=== PATIENT | female | born 1985 | race Caucasian/White ===

== ENCOUNTER 2017-12-16 08:42 | Emergency (ER) | payer OTHER ==
[~2017-12-16] VITALS: Ht 160 cm; Wt 100.0 kg
[~2017-12-16 08:42] MED LIST: AUGMENTIN400 MG OR; CIPRO XR500 MG PO; DILAUDID2 MG PO; LORTAB 10 PO; LORTAB 5 OR; LORTAB5 PO; MIRALAX3350 N1 PO; NAPROSYN500 MG PO; NO; NO HOME MEDS; ONDANSETRON4 MG RE; PERCOCET 5/325M1 TAB OR; PROCTOFOAM HC10 GM RE; TYLENOL325 M1 OR; TYLENOL325 MG OR; ULTRAM50 MG OR; ZOFRAN ODT4 MG PO
[2017-12-16] MEDS ORDERED: ULTRAM50 M1 PO (10:16)
[2017-12-16 10:20] VITALS: BP 118/71
== END 2017-12-16 10:20 | disposition home or self-care (01) | DRG 563 ==
LOC: ED 08:42
DX: S43.402A Unspecified sprain of left shoulder joint, initial encounter (principal); F17.210 Nicotine dependence, cigarettes, uncomplicated; W18.2XXA Fall in (into) shower or empty bathtub, initial encounter; Y92.002 Bathroom of unspecified non-institutional (private) residence as the place of occurrence of the external cause

== ENCOUNTER 2020-11-13 17:07 | Emergency (ER) | payer BC ==
[~2020-11-13] VITALS: Ht 160 cm; Wt 85.0 kg
[~2020-11-13 17:07] MED LIST changes: +ULTRAM50 M1 PO
[2020-11-13 18:11] VITALS: BP 129/76
[2020-11-13] MEDS ORDERED: AMITRIPTYLIN10 MG PO (18:12)
[2020-11-13] MEDS ORDERED: NEURONTIN600 MG PO (18:12)
== END 2020-11-13 20:10 | disposition home or self-care (01) | DRG 156 ==
LOC: ED 17:07
DX: R07.0 Pain in throat (principal); F17.210 Nicotine dependence, cigarettes, uncomplicated

== ENCOUNTER 2023-11-15 19:26 | Emergency (ER) | payer BC ==
[~2023-11-15] VITALS: Ht 160 cm; Wt 90.7 kg
[~2023-11-15 19:26] MED LIST changes: +AMITRIPTYLIN10 MG PO; +HYDROCORT AC13 EX; +NEURONTIN600 MG PO; +PREDNISONE20 MG PO
[2023-11-15] MEDS ORDERED: MOTRIN800 MG PO (19:35)
[2023-11-15] MEDS ORDERED: IBUPROFEN600 MG PO (22:38)
[2023-11-15] MEDS ORDERED: METHOCARBAMOL500 MG PO (22:38)
[2023-11-15 22:44] VITALS: BP 115/79
== END 2023-11-15 22:44 | disposition home or self-care (01) | DRG 563 ==
LOC: ED 19:26
DX: S46.912A Strain of unspecified muscle, fascia and tendon at shoulder and upper arm level, left arm, initial encounter (principal); X50.0XXA Overexertion from strenuous movement or load, initial encounter; Y93.89 Activity, other specified

== ENCOUNTER 2024-07-09 13:13 | Emergency (ER) | payer BC ==
[~2024-07-09] VITALS: Ht 160 cm; Wt 95.0 kg
[~2024-07-09 13:13] MED LIST changes: +IBUPROFEN600 MG PO; +METHOCARBAMOL500 MG PO; +MOTRIN800 MG PO
[2024-07-09] MEDS ORDERED: LIPITOR10 M1 PO (14:42)
[2024-07-09] MEDS ORDERED: BACLOFEN10 MG PO (14:42)
[2024-07-09] MEDS ORDERED: KETOROLAC TROMETHAMINE 30 MG/ML SDV IV ONE (15:00)
[2024-07-09 15:19] LABS: EOS% 2.7 % (0-8); HEMATOCRIT 35.6 % (37.0-47.0); HEMOGLOBIN 11.2 g/dl (12.0-16.0); LYMPH% 31.8 % (15-41); MEAN CELL VOLUME 77.7 fL CALC (80.0-100.0); MEAN CORPUSCULAR HGB 24.5 pG CALC (26.0-32.0); MEAN CORPUSCULAR HGB CONC 31.5 g/dL CAL (32.0-36.0); MONO% 7.5 % (2-13); NEUT# 3.86 thou/uL (2.00-7.15); RED BLOOD COUNT 4.58 mill/uL (4.20-5.60); RED CELL DISTRI WIDTH 18.2 % (11.5-15.5)
[2024-07-09 15:34] LABS: ALBUMIN 4.6 g/dL (3.2-5.0); BILIRUBIN, TOTAL 0.4 mg/dL (0.02-1.3); CREATININE 0.9 mg/dL (0.5-1.0); POTASSIUM 3.8 mmol/l (3.5-5.1); TOTAL PROTEIN 7.6 g/dL (6.3-8.2)
[2024-07-09] MEDS ORDERED: PREDNISONE50 MG PO (17:26)
[2024-07-09 17:27] VITALS: BP 117/79
== END 2024-07-09 17:35 | disposition home or self-care (01) | DRG 552 ==
LOC: ED 13:13
PROVIDERS: Family Medicine
DX: M54.2 Cervicalgia (principal)

== ENCOUNTER 2024-10-24 12:52 | Emergency (ER) | payer BC ==
[~2024-10-24] VITALS: Ht 160 cm; Wt 83.9 kg
[2024-10-24] VITALS (9 sets, daily range): BP systolic 96–111; BP diastolic 61–73
[~2024-10-24 12:52] MED LIST changes: +BACLOFEN10 MG PO; +LIPITOR10 M1 PO; +PREDNISONE50 MG PO
[2024-10-24 13:23] LABS: BASO% 1.4 % (0-3); EOS% 2.9 % (0-8); HEMATOCRIT 40.4 % (37.0-47.0); HEMOGLOBIN 13.1 g/dl (12.0-16.0); IMMATURE GRANULOCYTES 0.2 % (0.0-5.0); LYMPH% 48.1 % (15-41); MEAN CORPUSCULAR HGB 26.9 pG CALC (26.0-32.0); MEAN CORPUSCULAR HGB CONC 32.4 g/dL CAL (32.0-36.0); MONO% 8.8 % (2-13); NEUT# 2.25 thou/uL (2.00-7.15); NEUT% 38.6 % (42-76); RED BLOOD COUNT 4.87 mill/uL (4.20-5.60); RED CELL DISTRI WIDTH 13.2 % (11.5-15.5)
[2024-10-24 13:42] LABS: URINE BILIRUBIN - DIPSTICK Negative (NEGATIVE); URINE BLOOD DIPSTICK Negative (NEGATIVE); URINE COLOR Yellow; URINE GLUCOSE - DIPSTICK Negative (NEGATIVE); URINE KETONE Negative (NEGATIVE); URINE LEUK ESTERASE Negative (NEGATIVE); URINE NITRITE - DIPSTICK Negative (Negative); URINE PROTEIN - DIPSTICK Negative (NEG-TRACE); URINE UROBILINOGEN - DIPSTICK 0.2 E.U./dL (0.2)
[2024-10-24 13:49] LABS: ALBUMIN 4.6 g/dL (3.2-5.0); CREATININE 0.9 mg/dL (0.5-1.0); POTASSIUM 3.7 mmol/l (3.5-5.1); TOTAL PROTEIN 7.5 g/dL (6.3-8.2)
[2024-10-24 13:51] LABS: BILIRUBIN, TOTAL 0.7 mg/dL (0.02-1.3)
== END 2024-10-24 15:23 | disposition home or self-care (01) | DRG 392 ==
LOC: ED 12:52
PROVIDERS: Nurse Practitioner Family
DX: R10.32 Left lower quadrant pain (principal)
CPT/HCPCS: Q9967